=== PATIENT | male | born 1960 | race Caucasian/White ===

== ENCOUNTER 2024-08-24 10:42 | Observation (INO) ==
[2024-08-24 13:19] LABS: BASOPHILS # (AUTO) 0.1 X10^3/uL (0.0-0.1); EOSINOPHILS # (AUTO) 0.1 x10^3/uL (0.0-0.2); EOSINOPHILS % (AUTO) 2.4 % (0.9-2.9); HEMATOCRIT 43.7 % (42.0-54.0); HEMOGLOBIN 15.5 g/dL (13.5-18.0); LYMPHOCYTES # (AUTO) 1.3 X10^3/uL (1.3-2.9); LYMPHOCYTES % (AUTO) 23.4 % (21.0-51.0); MEAN CORPUSCULAR HEMOGLOBIN 33.3 pg (27.0-34.0); MEAN CORPUSCULAR HGB CONC 35.4 g/dL (33.0-35.0); MEAN CORPUSCULAR VOLUME 93.9 fL (80.0-100.0); MEAN PLATELET VOLUME 7.3 fL (7.4-11.0); MONOCYTES # (AUTO) 0.6 x10^3/uL (0.3-0.8); MONOCYTES % (AUTO) 11.7 % (0.0-13.0); NEUTROPHILS # (AUTO) 3.3 x10^3/uL (2.2-4.8); NEUTROPHILS % (AUTO) 61.5 % (42.0-75.0); PLATELET COUNT 230 X10^3/uL (150.0-450.0); RED BLOOD COUNT 4.65 X10^6/uL (4.7-6.0); WHITE BLOOD COUNT 5.4 X10^3/uL (3.6-10.0)
[2024-08-24] MEDS: NS 1,000 ML IV 1,000 ML IV SCH (13:35)
[2024-08-24 13:36] LABS: ALANINE AMINOTRANSFERASE 24 Units/L (12-78); ALBUMIN 4.2 g/dL (3.4-5.0); ALKALINE PHOSPHATASE 75 Units/L (46-116); ASPARTATE AMINO TRANSFERASE 10 Units/L (15-37); BLOOD UREA NITROGEN 8 mg/dL (7-18); CALCIUM 9.1 mg/dL (8.5-10.1); CARBON DIOXIDE 28.7 mmol/L (21-32); CHLORIDE 99 mmol/L (98-107); CREATININE 0.84 mg/dL (0.70-1.30); GLUCOSE 104 mg/dL (65-99); SODIUM 134 mmol/L (136-145); TOTAL PROTEIN 7.9 g/dL (6.4-8.2); eGFR NON BLACK RACES > 60 (>60)
[2024-08-24] MEDS: PROSCAR PO SCH (14:34)
[2024-08-24 15:03] VITALS: BMI 29.8
--- NOTE | 2024-08-24 16:57 | VAS ---
EXAM: LOWER EXT ARTERIAL-UNILATERAL HISTORY: LEFT LEG SWELLING, PEDAL EDEMA; COMPARISON: None TECHNIQUE: 25 images made by the flight reservations manager. [place] scale and color flow Doppler images of the left lower extremity arterial system were obtained. Spectral waveform analysis was performed. Velocities are measured in centimeters per second. FINDINGS: Left lower extremity: CREDIT COLLECTION SPECIALIST: PSV: 141 Waveform: triphasic SFA proximal: PSV: 88 Waveform: Biphasic SFA middle: PSV: 69 Waveform: Biphasic SFA distal: PSV: 107 Waveform: Triphasic Pop: PSV: 77 and 46 Waveform: Triphasic, biphasic SLOT MACHINE REPAIRER: PSV: 50, 54, 71 Waveform: Monophasic DPA: PSV: 20 Waveform: Monophasic Hard plaque is present in the common femoral artery. There are areas of shadowing consistent with calcification. There is no occlusion. Velocity suggest no hemodynamically significant focal stenosis. Waveforms are consistent with moderate to severe diffuse arterial sclerosis in the posterior tibial artery and the dorsalis pedis circulation. IMPRESSION: 1. Diffuse arterial sclerosis with no significant occlusion or focal stenosis THIS IS AN ELECTRONICALLY VERIFIED FINAL REPORT 08/24/2024 4:54 PM - Electronically signed by Yonny Sandoval MD
[2024-08-24] MEDS: FLOMAX PO SCH (21:07)
[2024-08-24] MEDS: NEURONTIN TAB 600 MG PO SCH (21:07)
[2024-08-24 23:22] VITALS: RESP 19
[2024-08-25 03:49] VITALS: O2SAT 97
[2024-08-25 06:17] LABS: BASOPHILS # (AUTO) 0.1 X10^3/uL (0.0-0.1); EOSINOPHILS # (AUTO) 0.2 x10^3/uL (0.0-0.2); EOSINOPHILS % (AUTO) 2.9 % (0.9-2.9); HEMATOCRIT 43.5 % (42.0-54.0); HEMOGLOBIN 15.5 g/dL (13.5-18.0); LYMPHOCYTES # (AUTO) 1.2 X10^3/uL (1.3-2.9); LYMPHOCYTES % (AUTO) 21.7 % (21.0-51.0); MEAN CORPUSCULAR HEMOGLOBIN 33.3 pg (27.0-34.0); MEAN CORPUSCULAR HGB CONC 35.6 g/dL (33.0-35.0); MEAN CORPUSCULAR VOLUME 93.6 fL (80.0-100.0); MEAN PLATELET VOLUME 7.8 fL (7.4-11.0); MONOCYTES # (AUTO) 0.7 x10^3/uL (0.3-0.8); MONOCYTES % (AUTO) 13.3 % (0.0-13.0); NEUTROPHILS # (AUTO) 3.3 x10^3/uL (2.2-4.8); NEUTROPHILS % (AUTO) 61.1 % (42.0-75.0); PLATELET COUNT 212 X10^3/uL (150.0-450.0); RED BLOOD COUNT 4.64 X10^6/uL (4.7-6.0); RED CELL DISTRIBUTION WIDTH 12.9 % (11.6-16.5); WHITE BLOOD COUNT 5.4 X10^3/uL (3.6-10.0)
[2024-08-25 06:39] LABS: ALANINE AMINOTRANSFERASE 20 Units/L (12-78); ALBUMIN 3.7 g/dL (3.4-5.0); ALKALINE PHOSPHATASE 66 Units/L (46-116); ASPARTATE AMINO TRANSFERASE 11 Units/L (15-37); BLOOD UREA NITROGEN 8 mg/dL (7-18); CHLORIDE 102 mmol/L (98-107); CREATININE 0.72 mg/dL (0.70-1.30); GLUCOSE 97 mg/dL (65-99); POTASSIUM 4.1 mmol/L (3.5-5.1); SODIUM 139 mmol/L (136-145); TOTAL PROTEIN 7.2 g/dL (6.4-8.2); eGFR NON BLACK RACES > 60 (>60)
--- NOTE | 2024-08-25 08:28 | RAD ---
EXAM: CHEST, 1 VIEW HISTORY: hyponatremia; COMPARISON: 08/02 TECHNIQUE: AP portable FINDINGS: Mildly prominent cardiac silhouette, accentuated by AP technique. Left-sided pacer lead in place. Low lung volumes. Chronic mildly prominent interstitial lung markings. No focal consolidation, pleural effusion, or visible pneumothorax. IMPRESSION: Low lung volumes. No focal consolidation. THIS IS AN ELECTRONICALLY VERIFIED FINAL REPORT 08/25/2024 8:24 AM - Electronically signed by Rusty Guzman MD
[2024-08-25 09:03] VITALS: BP 115/64; PULSE 60; TEMP 97.3
--- NOTE | 2024-08-25 15:28 | DR.H&P ---
Documented by User: Martha Brown MD 08/25/24 09:53 H&P History & Physical for Day of: H&P Date: 08/24/24 Chief Complaint Chief Complaint: weakness, left leg swelling History of Present Illness History of Present Illness: Mr. Campos is a 64-year-old male with a past medical history of BPH and neuropathy presented to his primary care office recently due to fatigue and weakness. He was noted to have low sodium 130 on labs. He also had left leg pain and swelling. He did have outpatient workup including lower extremity ultrasound which was negative for DVT. He also had chest x-ray which was normal. He also had liver ultrasound which showed cholelithiasis. He states the leg swelling is slightly better, he had it wrapped in [place] bandage and has been able to walk. He is scheduled to see bone and joint. He was admitted for further management. Labs/imaging reviewed: - WBC 5.4 hemoglobin 15.5 sodium 134 creatinine 0.84 BNP normal - Chest x-ray pending Plan: Admit to [facility], start gentle hydration. Replace electrolytes as per protocol. Will obtain records. Order arterial ultrasound to rule out any stenosis. Keep leg elevated. Resume home medications monitor a.m. labs and imaging. Past Surgical History Surgical History: Appendectomy and Ortho Surgery Family History Family Medical History: Diabetes Mellitus, Cancer, [place] and Hypertension Social History Type of Tobacco Use: None Alcohol Use: DAILY Drug Use: None Medications Home Medications: Home Medications Medication Instructions Recorded Confirmed Type finasteride 5 mg tablet 5 mg PO QDAY 04/24/23 History gabapentin 300 mg capsule 600 mg PO TID 04/24/2308/24 History tamsulosin 0.4 mg capsule 0.4 mg PO QPM 04/24/2308/24 History Allergies Allergies Allergy/AdvReac Type Severity Reaction Status Date / Time No Known Drug Allergies Allergy Unknown Verified 05/07/23 09:45 Labs 08/25/24 05:30 08/25/24 05:30 Labs: Laboratory WBC 5.4 X10^3/uL (3.6-10.0) 08/25/24 05:30 RBC 4.64 X10^6/uL (4.7-6.0) L 08/25/24 05:30 Hgb 15.5 g/dL (13.5-18.0) 08/25/24 05:30 Hct 43.5 % (42.0-54.0) 08/25/24 05:30 MCV 93.6 fL (80.0-100.0) 08/25/24 05:30 MCH 33.3 pg (27.0-34.0) 08/25/24 05:30 MCHC 35.6 g/dL (33.0-35.0) H 08/25/24 05:30 RDW 12.9 % (11.6-16.5) 08/25/24 05:30 Plt Count 212 X10^3/uL (150.0-450.0) 08/25/24 05:30 MPV 7.8 fL (7.4-11.0) 08/25/24 05:30 Neut % (Auto) 61.1 % (42.0-75.0) 08/25/24 05:30 Lymph % (Auto) 21.7 % (21.0-51.0) 08/25/24 05:30 [place] % (Auto) 13.3 % (0.0-13.0) H 08/25/24 05:30 Eos % (Auto) 2.9 % (0.9-2.9) 08/25/24 05:30 Baso % (Auto) 1.0 % (0.2-1.0) 08/25/24 05:30 Neut # (Auto) 3.3 x10^3/uL (2.2-4.8) 08/25/24 05:30 Lymph # (Auto) 1.2 X10^3/uL (1.3-2.9) L 08/25/24 05:30 [place] # (Auto) 0.7 x10^3/uL (0.3-0.8) 08/25/24 05:30 Eos # (Auto) 0.2 x10^3/uL (0.0-0.2) 08/25/24 05:30 Baso # (Auto) 0.1 X10^3/uL (0.0-0.1) 08/25/24 05:30 Absolute Nucleated RBC 0.2 /100WBC 08/25/24 05:30 Sodium 139 mmol/L (136-145) 08/25/24 05:30 Corrected Sodium TNP 08/25/24 05:30 Potassium 4.1 mmol/L (3.5-5.1) 08/25/24 05:30 Chloride 102 mmol/L (98-107) 08/25/24 05:30 Carbon Dioxide 28.0 mmol/L (21-32) 08/25/24 05:30 BUN 8 mg/dL (7-18) 08/25/24 05:30 Creatinine 0.72 mg/dL (0.70-1.30) 08/25/24 05:30 Est GFR (MDRD) Af Amer > 60 (>60) 08/25/24 05:30 Est GFR (MDRD) Non-Af > 60 (>60) 08/25/24 05:30 Glucose 97 mg/dL (65-99) 08/25/24 05:30 Calcium 9.0 mg/dL (8.5-10.1) 08/25/24 05:30 Corrected Calcium TNP 08/25/24 05:30 Magnesium 2.0 mg/dL (2.0-2.9) 08/24/24 13:05 Total Bilirubin 0.60 mg/dL (0.2-1.0) 08/25/24 05:30 AST 11 Units/L (15-37) L 08/25/24 05:30 ALT 20 Units/L (12-78) 08/25/24 05:30 Alkaline Phosphatase 66 Units/L (46-116) 08/25/24 05:30 B-Natriuretic Peptide 38.1 pg/mL (0-79) 08/24/24 13:05 Total Protein 7.2 g/dL (6.4-8.2) 08/25/24 05:30 Albumin 3.7 g/dL (3.4-5.0) 08/25/24 05:30 Globulin 3.5 g/dL (2.5-4.5) 08/25/24 05:30 Albumin/Globulin Ratio 1.1 Ratio (1.1-2.1) 08/25/24 05:30 Review of Systems Constitutional: Weakness Eyes: No Symptoms Reported Respiratory: No Symptoms Reported Cardiovascular: No Symptoms Reported Gastrointestinal: No Symptoms Reported Genitourinary: No Symptoms Reported Musculoskeletal: Leg Pain Skin: No Symptoms Reported Neurological: No Symptoms Reported Physical Exam Vital Signs: Vital Signs Temperature 97.3 F Temperature 97.5 F Pulse Rate [Radial] 60 Pulse Rate [Radial] 57 Respiratory Rate 19 Respiratory Rate 19 Blood Pressure [Left Arm] 115/64 Blood Pressure [Left Arm] 134/76 O2 Sat by Pulse Oximetry 97 O2 Sat by Pulse Oximetry 97 Oriented: Normal Respiratory: Clear Throughout Cardiovascular: Normal Auscultation: Bowel Sounds: Normal Palpation: Normal Tenderness: Normal Musculoskeletal: Left and Leg (edema noted) Psychiatric: Normal Mood Description: Calm Affect: Normal Speech Pattern: Clear Assessment/Plan (1) Hyponatremia: Status: Acute (2) Dehydration: Status: Acute (3) Leg swelling: Status: Acute (4) Neuropathy, lumbosacral (radicular): Status: None Review H&P Reviewed: Yes Patient was examined?: Yes Documented by User: Freedom Carias MD 08/25/24 15:28 H&P Allergies Allergies Allergy/AdvReac Type Severity Reaction Status Date / Time No Known Drug Allergies Allergy Unknown Verified 05/07/23 09:45 Labs 08/25/24 05:30 08/25/24 05:30 Assessment/Plan (1) Hyponatremia: Status: Acute Plan: IVF, continue to monitor (2) Dehydration: Status: Acute (3) Leg swelling: Status: Acute Plan: order imaging (4) Neuropathy, lumbosacral (radicular): Status: None
== END 2024-08-25 11:15 | disposition home or self-care (01) ==
LOC: MED/SURG
PROVIDERS: ADMIT Internal Medicine; ATTEND Internal Medicine
DX: M54.17 Radiculopathy, lumbosacral region; N40.0 Benign prostatic hyperplasia without lower urinary tract symptoms; R53.1 Weakness; M79.605 Pain in left leg; F10.90 Alcohol use, unspecified, uncomplicated; E87.1 Hypo-osmolality and hyponatremia; E86.0 Dehydration; M79.89 Other specified soft tissue disorders